=== PATIENT | male | born 1975 | race Caucasian/White ===

== ENCOUNTER 2022-11-01 13:12 | Emergency (ER) | payer SELFPAY ==
[~2022-11-01] VITALS: Ht 172.7 cm; Wt 67.7 kg
[2022-11-01 13:54] LABS: BASO # 0.1 K/mm3 (0.0-0.2); BASO % 0.6 % (0.0-2.0); EOS # 0.6 K/mm3 (0.0-0.7); EOS % 6.9 % (0.0-4.0); GRAN # 5.3 K/mm3 (1.4-6.5); GRAN % 63.3 % (42.2-75.2); HEMATOCRIT 41.4 % (42.0-52.0); HEMOGLOBIN 13.9 g/dl (13.5-18.0); LYMPH # 1.6 K/mm3 (1.2-3.4); LYMPH % 18.5 % (20.0-51.0); MEAN CELL VOLUME 87 fl (80.0-100.0); MEAN CORPUSCULAR HEMOGLOBIN 29 pg (27-31); MEAN CORPUSCULAR HGB CONC 34 g/dl (33.0-37.0); MEAN PLATELET VOLUME 9.9 fl (7.4-10.4); MONO # 0.9 K/mm3 (0.1-0.6); MONO % 10.1 % (1.7-9.3); PLATELET COUNT 182 K/mm3 (130-400); RED BLOOD COUNT 4.77 M/mm3 (4.20-5.60); REDCELL DISTRIBUTION WIDTH-CV 14.5 % (11.5-14.5)
[2022-11-01 14:03] LABS: ALANINE AMINOTRANSFERASE 43 U/L (0-55); ALBUMIN 3.6 gm/dL (3.5-5.0); ALKALINE PHOSPHATASE 89 U/L (40-150); ANION GAP 18 mmol/L (7-16); AST,SGOT 64 U/L (5-34); BILIRUBIN,TOTAL 0.7 mg/dL (0.2-1.2); BLOOD UREA NITROGEN 9 mg/dL (9-21); CALCIUM 8.9 mg/dL (8.4-10.2); CARBON DIOXIDE 16 mmol/L (22-29); CHLORIDE 101 mmol/L (98-107); CREATININE, serum 0.82 mg/dL (0.72-1.25); GLUCOSE 119 mg/dL (70-99); POTASSIUM 3.9 mmol/L (3.5-4.5); SODIUM 135 mmol/L (136-145); TOTAL PROTEIN 6.5 gm/dL (6.2-8.1)
[2022-11-01 14:08] LABS: ALCOHOL(ethanol),MEDICAL < 10 mg/dL (0-10)
[2022-11-01 14:39] LABS: TRICYCLIC ANTIDEPRESS URINE NEGATIVE
[2022-11-01 15:34] VITALS: BP 133/74; PULSE 94; TEMP 98.4
== END 2022-11-01 15:27 | disposition home or self-care (01) ==
LOC: COL.ER 13:12
PROVIDERS: Physician Assistant
DX: R56.9 Unspecified convulsions (principal); T50.905A Adverse effect of unspecified drugs, medicaments and biological substances, initial encounter; Z79.899 Other long term (current) drug therapy